=== PATIENT | female | born 1970 | race Caucasian/White ===

== ENCOUNTER 2017-01-02 09:43 | Emergency (ER) | payer MEDICAID, OTHER ==
[~2017-01-02] VITALS: Ht 170.2 cm; Wt 86.0 kg
[~2017-01-02 09:43] MED LIST: BACT800T5 PO; NEUR400C PO
[2017-01-02 09:44] VITALS: BP 142/79; PULSE 78; RESP 16; TEMP 97.8; O2SAT 97
--- NOTE | 2017-01-02 09:50 | PD ---
HPI . left eye redness, eye lid swelling, and possible FB Chief Complaint: Eye Problems/Injury Time Seen by Provider: 09:50 Travel History International Travel<30 days: No Contact w/Intl Traveler<30days: No Traveled to known affect area: No History of Present Illness HPI 46-year-old female with history of spinal stenosis here with complaints of left eye redness, eye with swelling and possible foreign body. Patient tells me that she thinks something got into her eye a few days ago. She says for the past 3 days she has felt like something was in there. She tells me that all of a sudden she developed some redness and swelling of her eyelid. She denies any visual changes or pain. She does wear contact lenses. PFSH Past Medical History ?: Not : 4 Para: 2 Miscarriage: 2 Past Surgical History Hysterectomy: Yes Social History Alcohol Use: Yes (RARE) Tobacco Use: Yes (1 PPD) Substance Use: No Allergies-Medications (Allergen,Severity, Reaction): Coded Allergies: No Known Allergies (Unverified , 01/02/17) Reported Meds & Prescriptions Reported Meds & Active Scripts Active Ocuflox Opth Drops (Ofloxacin Opth Drops) 0.3 % Drops 1 Drop LEFT EYE Q6HR 5 Days Reported Gabapentin 600 Mg Tab 1,200 Mg PO TID Review of Systems General / Constitutional: No: Fever Eyes: Positive: Redness, Foreign Body Sensation, Tearing, No: Visual changes HENT: No: Headaches Cardiovascular: No: Chest Pain or Discomfort Respiratory: No: Shortness of Breath Gastrointestinal: No: Abdominal Pain Genitourinary: No: Dysuria Musculoskeletal: No: Pain Skin: No Rash Neurologic: No: Weakness Psychiatric: No: Depression Endocrine: No: Polydipsia Hematologic/Lymphatic: No: Easy Bruising Physical Exam Narrative GENERAL: AAO x 3, no acute distress, Well-nourished, well-developed patient. SKIN: Warm and dry. No visible rashes or bruising. HEAD: Normocephalic and atraumatic. EYES: No scleral icterus. EOM intact, PERRLA, no foreign body on examination. Left eye positive injection. There appears to be some clear/slightly purulent drainage. The eye is erythematous. Fluorescein stain negative. ENT: No nasal drainage noted. Mucous membranes pink. Airway patent. NECK: Supple, trachea midline. No JVD. CARDIOVASCULAR: Regular rate and rhythm without murmurs, gallops, or rubs. RESPIRATORY: Breath sounds equal bilaterally. No accessory muscle use. No rhonchi or rales. GASTROINTESTINAL: visual inspection normal EXTREMITIES: No cyanosis or edema. BACK: Nontender without obvious deformity. No CVA tenderness. PSYCH: AAO x 3, normal affect. Data Data Last Documented VS Vital Signs Date Time Temp Pulse Resp B/P Pulse Ox O2 Delivery O2 Flow Rate FiO2 01/02/17 09:44 97.8 78 16 142/79 97 Orders Eye Irrigation (01/02/17 09:56) MDM Medical Decision Making Medical Screen Exam Complete: Yes Emergency Medical Condition: Yes Medical Record Reviewed: Yes Differential Diagnosis Conjunctivitis, foreign body, less likely retinal detachment, less likely acute angle glaucoma Narrative Course 46-year-old female presenting here with complaints of left eye redness and eyelid swelling after having some type of foreign body hit her eye about 3 days ago. No foreign body visualized on examination and with eversion of eye lid. Eyes staining was performed and negative for corneal abrasion. I truly believe she has a conjunctivitis. I will go ahead and treat her with some antibiotic eyedrops. I recommend follow-up with her primary care provider and web press operator. In the ED we flusher her eye with the Eusebio lens. Patient states eye feeling somewhat better after the flush. Advised no contact wearing. Patient verbalized understanding of instructions, questions were answered, and thanked me for their care. I advised them if their condition worsens, please return to the nearest emergency room for further care. Procedures Procedure Narrative Fluorescein eye staining procedure: left eye proparacaine drops instilled into the left eye Local anesthesia was accomplished. the eye was inspected for any type of obvious foreign body: none fluorescein stain was applied to look for corneal abrasion: none Diagnosis Primary Impression: Conjunctivitis Qualified Code: H10.32 - Acute conjunctivitis of left eye, unspecified acute conjunctivitis type Referrals: Risk Management Consultant Patient Instructions: General Instructions Additional Instructions: Please seen web press operator in the next 2-3 days. If you develop sudden onset of eye pain or vision loss, go to the nearest emergency department. Med/Other Pt SpecificInfo: Prescription(s) given Scripts Ofloxacin Opth Drops (Ocuflox Opth Drops)0.3 % Drops1 Drop LEFT EYE Q6HR 5 Days Ref 0 Prov:Danial Goyal MD 01/02/17 Disposition: 01 DISCHARGE HOME Condition: Stable Lesley Mtot January 02, 2017 09:50
[2017-01-02] MEDS ORDERED: OCUF0.3D LEFT EYE (09:55)
[2017-01-02] MEDS ORDERED: GABA600T PO (09:56)
== END 2017-01-02 10:40 | disposition home or self-care (01) ==
LOC: NEPK 09:43
DX: H10.9 Unspecified conjunctivitis (principal); F17.210 Nicotine dependence, cigarettes, uncomplicated
CPT/HCPCS: 99283